=== PATIENT | male | born 1985 | race African-American/Black ===

== ENCOUNTER 2020-04-11 23:58 | Emergency (ER) | payer OTHER ==
[~2020-04-11] VITALS: Ht 175.3 cm; Wt 97.7 kg
[2020-04-12 00:28] LABS: BASO # 0.1 x10^3/uL (0.0-0.2); BASO % 1 % (0-3); EOS # 0.1 x10^3/uL (0.0-0.7); EOS % 2 % (0-3); HEMATOCRIT 40.3 % (39.0-53.0); HEMOGLOBIN 13.8 g/dL (13.0-17.5); LYMPH # 2.7 x10^3/uL (1.0-4.8); LYMPH % 51 % (24-48); MEAN CORPUSCULAR HEMOGLOBIN 32 pg (25-35); MEAN CORPUSCULAR HGB CONC 34 g/dL (31-37); MEAN CORPUSCULAR VOLUME 93 fL (79-100); MONO # 0.5 x10^3/uL (0.0-1.1); MONO % 9 % (0-9); NEUT % 37 % (31-73); PLATELET COUNT 238 x10^3/uL (140-400); RED BLOOD COUNT 4.35 x10^6/uL (4.30-5.70); WHITE BLOOD COUNT 5.4 x10^3/uL (4.0-11.0)
--- NOTE | 2020-04-12 00:30 | RAD ---
AP portable chest radiograph 04/12/2020 Clinical History: Chest pain. An AP erect portable digital radiograph of the chest was obtained. The cardiac and mediastinal silhouettes are within normal limits in size and configuration. The degre e of inspiration is shallow. No area of consolidation is seen. No pneumothorax or pleural effusion is noted. The osseous structures are grossly intact. IMPRESSION: No area of consolidation is seen. Electronically signed by: Car Enriquez MD (04/12/2020 12:28 AM) [id number]
[2020-04-12 00:31] LABS: CALCIUM 8.9 mg/dL (8.5-10.1); CREATININE 1.2 mg/dL (0.7-1.3); GFR 83.9; POTASSIUM 3.3 mmol/L (3.5-5.1)
[2020-04-12] MEDS ORDERED: HEPARIN for IV BOLUS 10,000 UNIT/10 ML VIAL. IV PRN (01:00)
[2020-04-12] MEDS ORDERED: HEPARIN 25,000UTS/250ML PREMIX 250 ML IV PRN (01:00)
[2020-04-12] MEDS ORDERED: MORPHINE SULFATE 4 MG/ML DISP.SYRIN. ONE (01:00)
[2020-04-12] MEDS ORDERED: NITROGLYCERIN SUBLINGUAL 0.4 MG BOTTLE OF 25. SL PRN (01:00)
[2020-04-12 01:07] VITALS: BP 122/75
--- NOTE | 2020-04-12 01:08 | EKG ---
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
--- NOTE | 2020-04-12 01:08 | EKG ---
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
--- NOTE | 2020-04-12 01:11 | PHYS DOC ---
Past History Past Medical History: Anxiety, Hypertension, Other Additional Past Medical Histor: PTSD, HERNIA Past Surgical History: Other Additional Past Surgical Histo: HERNIA REPAIR Additional Smoking Information: CHEWING TOBACCO Alcohol Use: Heavy Additional Alcohol Information: / PINT RUM Adult General Chief Complaint Chief Complaint: CHEST PAIN HPI HPI Patient is a 34-year-old male who presents with substernal chest pain for approximately 3 hours before coming to the ED. States it is substernal in nature with some radiation to his left side, 8 out of 10, sharp in nature. States he never had anything like this before. Denies any recent dyspnea on exertion, PND, orthopnea or edema. States he is an alcoholic and drinks daily but denies any other drug use. States he is a smoker as well. States he had Covid in January and symptoms resolved. Denies any recent travel, other illnesses, traumas. Review of Systems Review of Systems Review of systems otherwise unremarkable except noted in HPI. Current Medications Current Medications Current Medications Medications (Trade) Dose Ordered Sig/Juan Manuel Start Time Stop Time Status Last Admin Dose Admin Morphine Sulfate (Morphine 4mg Syringe) 4 mg STK-MED ONCE 04/12/20 01:00 04/12/20 01:00 DC Allergies Allergies Allergies Coded Allergies Type Severity Reaction Last Updated Verified No Known Drug Allergies 04/12/20 No Physical Exam Physical Exam Constitutional: Well developed, well nourished, patient appears uncomfortable, non-toxic appearance. [] HENT: Normocephalic, atraumatic, bilateral external ears normal, oropharynx moist, no oral exudates, nose normal. [] Eyes: conjunctiva normal, no discharge. [] Neck: Normal range of motion, no tenderness, supple, no stridor. [] Cardiovascular:Heart rate regular rhythm, no murmur [] Lungs & Thorax: Bilateral breath sounds clear to auscultation [] Abdomen: soft, no tenderness, no masses, no pulsatile masses. [] Skin: Warm, dry, no erythema, no rash. [] Back: No tenderness, no CVA tenderness. [] Extremities: No tenderness, no cyanosis, no clubbing, ROM intact, no edema. [] Neurologic: Alert and oriented X 3, normal motor function, normal sensory function, no focal deficits noted. [] Psychologic: Affect normal, judgement normal, mood normal. [] Current Patient Data Vital Signs Vital Signs Date Time Temp Pulse Resp B/P (MAP) Pulse Ox O2 Delivery O2 Flow Rate FiO2 04/11/20 23:58 98.1 95 18 104/56 (72) 98 Room Air Lab Results Laboratory Tests Test 04/12/20 00:10 White Blood Count 5.4 x10^3/uL (4.0-11.0) Red Blood Count 4.35 x10^6/uL (4.30-5.70) Hemoglobin 13.8 g/dL (13.0-17.5) Hematocrit 40.3 % (39.0-53.0) Mean Corpuscular Volume 93 fL (79-100) Mean Corpuscular Hemoglobin 32 pg (25-35) Mean Corpuscular Hemoglobin Concent 34 g/dL (31-37) Red Cell Distribution Width 12.0 % (11.5-14.5) Platelet Count 238 x10^3/uL (140-400) Neutrophils (%) (Auto) 37 % (31-73) Lymphocytes (%) (Auto) 51 % (24-48) H Monocytes (%) (Auto) 9 % (0-9) Eosinophils (%) (Auto) 2 % (0-3) Basophils (%) (Auto) 1 % (0-3) Neutrophils # (Auto) 2.0 x10^3uL (1.8-7.7) Lymphocytes # (Auto) 2.7 x10^3/uL (1.0-4.8) Monocytes # (Auto) 0.5 x10^3/uL (0.0-1.1) Eosinophils # (Auto) 0.1 x10^3/uL (0.0-0.7) Basophils # (Auto) 0.1 x10^3/uL (0.0-0.2) Sodium Level 144 mmol/L (136-145) Potassium Level 3.3 mmol/L (3.5-5.1) L Chloride Level 106 mmol/L (98-107) Carbon Dioxide Level 25 mmol/L (21-32) Anion Gap 13 (6-14) Blood Urea Nitrogen 19 mg/dL (8-26) Creatinine 1.2 mg/dL (0.7-1.3) Estimated GFR (Cockcroft-Gault) 83.9 Glucose Level 111 mg/dL (70-99) H Calcium Level 8.9 mg/dL (8.5-10.1) Troponin I Quantitative 0.315 ng/mL (0-0.055) H EKG EKG Initial EKG with a rate of 105, QRS of 82, QTc of 475, no STEMI. Patient does have T wave inversions in lead III Repeat EKG 50 minutes later with a rate of 97, QRS of 80, QTc of 459, ST elevations in 3 and aVF of a half a millimeter to 1 mm with reciprocal changes in 1 aVL V5 and V6. Probable developing STEMI [] Radiology/Procedures Radiology/Procedures [] Heart Score Risk Factors: Risk Factors: DM, Current or recent (<one month) smoker, HTN, HLP, family history of CAD, obesity. Risk Scores: Risk Factors: DM, Current or recent (<one month) smoker, HTN, HLP, family history of CAD, obesity. Course & Med Decision Making Course & Med Decision Making Patient is a 34-year-old male who presents with chest pain approximately 3 hours before coming to the ED Vital signs notable for tachycardia. Physical exam noted above. EKGs x2 looks like probable developing STEMI. Troponin greater than 0.3. Patient given aspirin in route via EMS. Patient placed on the monitor with IV access established. Given morphine for pain control as well as nitroglycerin. Labs obtained. Started on heparin. STEMI activated. Transferred patient to [place] for continued evaluation and treatment. Explained situation to family who verbalized understanding and agreed with plan of transfer and admission for continued cardiac work-up. [] Dragon Disclaimer Dragon Disclaimer This electronic medical record was generated, in whole or in part, using a voice recognition dictation system. Departure Departure: Impression: Primary Impression: Chest pain Additional Impression: STEMI (ST elevation myocardial infarction) Disposition: 01 DC HOME SELF CARE/HOMELESS Condition: STABLE Referrals: PCP,UNKNOWN (PCP) Problem Qualifiers DREW KUHN MD Apr 12, 2020 01:11
[2020-04-12] MEDS ORDERED: ANTI-COAG MONITOR BY PHARMACY. MC PRN (01:15)
[2020-04-12] MEDS ORDERED: MORPHINE SULFATE 4 MG/ML DISP.SYRIN. IV ONE (01:30)
[2020-04-12] MEDS ORDERED: ATORVASTATIN CALCIUM 20 MG TABLET PO SCH (01:30)
[2020-04-12] MEDS ORDERED: HEPARIN for IV BOLUS 10,000 UNIT/10 ML VIAL. IV ONE (01:30)
== END 2020-04-12 01:35 | disposition home or self-care (01) ==
LOC: ER 23:58
DX: I21.3 ST elevation (STEMI) myocardial infarction of unspecified site (principal); R07.2 Precordial pain; F41.9 Anxiety disorder, unspecified; I10 Essential (primary) hypertension; F43.10 Post-traumatic stress disorder, unspecified; F17.220 Nicotine dependence, chewing tobacco, uncomplicated; Z20.822 Contact with and (suspected) exposure to COVID-19
CPT/HCPCS: 36415; 71045; 80048; 84484; 85025; 85610; 85730; 87426; 93005; 96365; 96375; 96376; 99285; J1644; J2270; U0003

== ENCOUNTER 2020-04-22 00:03 | Emergency (ER) | payer OTHER ==
[~2020-04-22] VITALS: Ht 175.3 cm; Wt 97.7 kg
--- NOTE | 2020-04-22 00:29 | EKG ---
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
[2020-04-22 00:36] LABS: HEMATOCRIT 37.2 % (39.0-53.0); HEMOGLOBIN 12.7 g/dL (13.0-17.5); RED BLOOD COUNT 4.06 x10^6/uL (4.30-5.70); RED CELL DISTRIBUTION WIDTH 12.3 % (11.5-14.5); WHITE BLOOD COUNT 5.6 x10^3/uL (4.0-11.0)
--- NOTE | 2020-04-22 00:38 | RAD ---
Study: XR CHEST 1V Indication: Chest pain. Comparison: 04/12/2020 Findings: The cardiomediastinal silhouette and marianna are within normal limits. No localized airspace opacity, pl eural effusion or pneumothorax. Impression: No acute radiographic abnormality of the chest. No relevant change from the 04/12/2020 comparison. Electronically signed by: SACHA DIAZ MD (04/22/2020 12:36 AM) [facility]
[2020-04-22 00:48] LABS: CALCIUM 8.9 mg/dL (8.5-10.1); CREATININE 1.3 mg/dL (0.7-1.3); GFR 76.5; POTASSIUM 3.5 mmol/L (3.5-5.1)
[2020-04-22 00:55] LABS: ALBUMIN 3.8 g/dL (3.4-5.0); ALBUMIN/GLOBULIN RATIO 1.3 (1.0-1.7); TOTAL BILIRUBIN 0.6 mg/dL (0.2-1.0); TOTAL PROTEIN 6.7 g/dL (6.4-8.2)
[2020-04-22 01:07] VITALS: BP 138/66
[2020-04-22 01:23] LABS: BARBITURATES NEG (NEG); BENZODIAZEPINES NEG (NEG); CANNABINOIDS NEG (NEG); COCAINE NEG (NEG); METHADONE NEG (NEG); OPIATES NEG (NEG); PHENCYCLIDINE NEG (NEG)
[2020-04-22 01:24] LABS: AMPHETAMINE/METHAMPHETAMINE NEG (NEG)
--- NOTE | 2020-04-22 01:24 | PHYS DOC ---
Past History Past Medical History: Anxiety, Hypertension, Other Additional Past Medical Histor: PTSD, HERNIA Past Surgical History: Angioplasty, Other Additional Past Surgical Histo: HERNIA REPAIR Additional Smoking Information: patient chews tobacco Alcohol Use: Heavy Additional Alcohol Information: last drink today Adult General Chief Complaint Chief Complaint: CHEST PAIN HPI HPI Patient is a 34-year-old male that presents with 2 hours of substernal chest pain, 6 out of 10, dull and achy in nature. Patient was in the emergency department approximately a week ago with elevated troponins and abnormal EKG and was admitted to [place] for work-up. Patient underwent a cardiac catheterization which showed no CAD. Patient states that since then he has been doing well up until this episode. Denies any recent illnesses, fevers, shortness of breath, abdominal pain, nausea, vomiting, diaphoresis, dysuria, hematuria or blood in the stool. Denies any drug use. States he does chew tobacco. States he had not had any alcohol over the last week. Denies any recent travel, known ill contacts. Denies any traumas. Review of Systems Review of Systems Review of systems otherwise unremarkable except noted in HPI Allergies Allergies Allergies Coded Allergies Type Severity Reaction Last Updated Verified No Known Drug Allergies 04/12/20 No Physical Exam Physical Exam Constitutional: Well developed, well nourished, no acute distress, non-toxic appearance. [] HENT: Normocephalic, atraumatic, bilateral external ears normal, oropharynx moist, no oral exudates, nose normal. [] Eyes: PERRLA, EOMI, conjunctiva normal, no discharge. [] Neck: Normal range of motion, no tenderness, supple, no stridor. [] Cardiovascular:Heart rate regular rhythm, no murmur [] Lungs & Thorax: Bilateral breath sounds clear to auscultation [] Abdomen: Bowel sounds normal, soft, no tenderness, no masses, no pulsatile masses. [] Skin: Warm, dry, no erythema, no rash. [] Back: No tenderness, no CVA tenderness. [] Extremities: No tenderness, no cyanosis, no clubbing, ROM intact, no edema. [] Neurologic: Alert and oriented X 3, normal motor function, normal sensory function, no focal deficits noted. [] Psychologic: Affect normal, judgement normal, mood normal. [] Current Patient Data Vital Signs Vital Signs Date Time Temp Pulse Resp B/P (MAP) Pulse Ox O2 Delivery O2 Flow Rate FiO2 04/22/20 00:08 97.7 103 18 127/91 (103) 96 Room Air Lab Results Laboratory Tests Test 04/22/20 00:00 04/22/20 00:07 Prothrombin Time 9.7 SEC (9.4-11.4) Prothrombin Time INR 0.9 (0.9-1.1) Activated Partial Thromboplast Time 23 SEC (23-33) Sodium Level 140 mmol/L (136-145) Potassium Level 3.5 mmol/L (3.5-5.1) Chloride Level 104 mmol/L (98-107) Carbon Dioxide Level 23 mmol/L (21-32) Anion Gap 13 (6-14) Blood Urea Nitrogen 21 mg/dL (8-26) Creatinine 1.3 mg/dL (0.7-1.3) Estimated GFR (Cockcroft-Gault) 76.5 BUN/Creatinine Ratio 16 (6-20) Glucose Level 109 mg/dL (70-99) H Calcium Level 8.9 mg/dL (8.5-10.1) Total Bilirubin 0.6 mg/dL (0.2-1.0) Aspartate Amino Transferase (AST) 33 U/L (15-37) Alanine Aminotransferase (ALT) 61 U/L (16-63) Alkaline Phosphatase 64 U/L (46-116) Troponin I Quantitative 0.136 ng/mL (0-0.055) H Total Protein 6.7 g/dL (6.4-8.2) Albumin 3.8 g/dL (3.4-5.0) Albumin/Globulin Ratio 1.3 (1.0-1.7) White Blood Count 5.6 x10^3/uL (4.0-11.0) Red Blood Count 4.06 x10^6/uL (4.30-5.70) L Hemoglobin 12.7 g/dL (13.0-17.5) L Hematocrit 37.2 % (39.0-53.0) L Mean Corpuscular Volume 91 fL (79-100) Mean Corpuscular Hemoglobin 31 pg (25-35) Mean Corpuscular Hemoglobin Concent 34 g/dL (31-37) Red Cell Distribution Width 12.3 % (11.5-14.5) Platelet Count 259 x10^3/uL (140-400) EKG EKG EKG with a rate of 98, QRS of 82, QTc of 479, no STEMI. Left atrial abnormality noted. [] Radiology/Procedures Radiology/Procedures [] Heart Score Risk Factors: Risk Factors: DM, Current or recent (<one month) smoker, HTN, HLP, family history of CAD, obesity. Risk Scores: Risk Factors: DM, Current or recent (<one month) smoker, HTN, HLP, family history of CAD, obesity. Course & Med Decision Making Course & Med Decision Making Patient is a 34-year-old male who presents with 2 hours of substernal chest pain, status post 1 week out from cardiac catheterization which was clean Vital signs notable for tachycardia. Physical exam noted above. EKG noted above with no STEMI. Troponin elevated to 0.1. Chest x-ray not concerning. Patient given morphine for chest pain. Tox screen notable for positive urine ethyl alcohol. Laboratory analysis otherwise unremarkable. Discussed findings with family and recommended adm ission to the hospital for continued evaluation of his chest pain and elevated troponin. Family grateful, verbalized understanding and agreed with plan of admission and transfer. [] Dragon Disclaimer Dragon Disclaimer This electronic medical record was generated, in whole or in part, using a voice recognition dictation system. Departure Departure: Impression: Primary Impression: Non-ST elevation (NSTEMI) myocardial infarction Disposition: 02 DC/TRF OTHER SHORT TERM HOS Condition: STABLE Referrals: MARCIANO GARCIA DO (PCP) DREW KUHN MD Apr 22, 2020 01:23
[2020-04-22] MEDS ORDERED: MORPHINE SULFATE 4 MG/ML DISP.SYRIN. IV ONE (02:00)
== END 2020-04-22 02:34 | disposition short-term general hospital (02) ==
LOC: ER 00:03
DX: I21.4 Non-ST elevation (NSTEMI) myocardial infarction (principal); R07.89 Other chest pain; F41.9 Anxiety disorder, unspecified; I10 Essential (primary) hypertension; F10.10 Alcohol abuse, uncomplicated; F43.10 Post-traumatic stress disorder, unspecified; Z90.89 Acquired absence of other organs
CPT/HCPCS: 36415; 71045; 80053; 80307; 84484; 85027; 85379; 85610; 85730; 93005; 96374; 99285; J2270

== ENCOUNTER → 2020-06-08 | Outpatient (CLI) | payer OTHER ==
--- NOTE | 2020-06-09 10:09 | RAD ---
MR#: [id number] Date of Study: 06/08/2020 Ordering Physician: ELIZABETH CLEMENTE, Referring Physician: ELIZABETH CLEMENTE, Tech: Judith Vidales RVT,ISMAEL APPROVED REPORT Patient Location : OUT-PATIENT Indications Lower Extremity Edema : Grayscale images the bilateral lower extremity greater and lesser saphenous veins did not reveal any significant thrombus. These were limited images only. The right great saphenous vein measures 5 mm and the left great saphenous vein measures 5 mm. The bilateral greater and lesser saphenous veins di d not show any evidence of reflux. Greater Saphenous Veins (GSV) Significant venous relux noted in the LEFT GSV at the following levels : Superficial Femoral Junction Critical Notification Critical Value: No <Conclusion> 1. Negative for reflux in the bilateral greater and lesser saphenous veins Signed by : Farhat Lowery, Electronically Approved : 06/09/2020 10:08:55
== END ==
LOC: US 09:55
PROVIDERS: ATTEND Internal Medicine Cardiovascular Disease
DX: R60.9 Edema, unspecified (principal)
CPT/HCPCS: 93970